=== PATIENT | female | born 1960 | race Caucasian/White ===

== ENCOUNTER 2019-12-23 12:05 | Emergency (ER) | payer OTHER ==
[~2019-12-23] VITALS: Ht 149.9 cm; Wt 80.0 kg
[~2019-12-23 12:05] MED LIST: HYDR-3245 PO
--- NOTE | 2019-12-23 12:28 | NUR ---
PT C/O LAKHANI STARTING THIS MORNING WITH NAUSEA, HX OF SAME ABOUT A YEAR AGO. FAMILY AT BEDSIDE TRANSLATING. PT CONNECTED TO MONITORING. CALL LIGHT IN REACH. AWAITING ORDERS. PT PROVIDED URINE SAMPLE.
[2019-12-23] MEDS ORDERED: DIPHENHYDRAMINE 50 MG/ML, 1ML ONE (12:48)
[2019-12-23] MEDS ORDERED: METOCLOPRAMIDE 5 MG/ML, 2ML ONE (12:48)
--- NOTE | 2019-12-23 12:55 | NUR ---
PIV PLACED. LABS DRAWN AND SENT TO LAB. MEDS ADMIN PER DEC.
[2019-12-23 13:00] LABS: BASOPHILS # (AUTO) 0.02 x10^3/uL (0-0.1); BASOPHILS % (AUTO) 0 % (0-1); EOSINOPHILS # (AUTO) 0.17 x10^3/uL (0-0.4); EOSINOPHILS % (AUTO) 3 % (1-7); LYMPHOCYTES # (AUTO) 1.79 x10^3/uL (1-3.4); LYMPHOCYTES % (AUTO) 33 % (22-44); MD NO; MEAN CORPUSCULAR HEMOGLOBIN 29.7 pg (27.0-34.8); MEAN CORPUSCULAR HGB CONC 33.5 g/dL (32.4-35.8); MEAN CORPUSCULAR VOLUME 88.5 fL (80-100); MEAN PLATELET VOLUME 7.9 fL (7.4-10.4); MONOCYTES # (AUTO) 0.28 x10^3/uL (0.2-0.8); MONOCYTES % (AUTO) 5 % (2-9); NEUTROPHILS # (AUTO) 3.21 x10^3/uL (1.8-6.8); NEUTROPHILS % (AUTO) 59 % (42-75); PLATELET COUNT 258 x10^3/uL (130-400); RED BLOOD COUNT 5.15 x10^6/uL (3.82-5.3); RED CELL DISTRIBUTION WIDTH 13.9 % (9.6-15.2)
[2019-12-23] MEDS ORDERED: DIPHENHYDRAMINE 50 MG/ML, 1ML IVPush ONE (13:00)
[2019-12-23] MEDS ORDERED: METOCLOPRAMIDE 5 MG/ML, 2ML IM ONE (13:00)
[2019-12-23 13:31] LABS: ALBUMIN 3.8 g/dL (3.4-5.0); ANION GAP 6 mmol/L (5-15); CALCIUM 9.1 mg/dL (8.5-10.1); CHLORIDE 106 mmol/L (98-107); CREATININE 0.79 mg/dL (0.55-1.02)
--- NOTE | 2019-12-23 13:54 | NUR ---
PT AT CT
--- NOTE | 2019-12-23 14:11 | NUR ---
PT BACK FROM CT. PT RESTING COMFORTABLY ON GURNEY. PT STATES LAKHANI IS BETTER. KADEN.
--- NOTE | 2019-12-23 14:20 | NUR ---
ALL RESULTS ARE BACK AT THIS TIME. CHART UP FOR RECHECK.
--- NOTE | 2019-12-23 14:22 | NUR ---
RECEIVED NEW LAB ORDERS AT THIS TIME.
[2019-12-23] MEDS ORDERED: KETOROLAC 30 MG/1 ML IM ONE (15:00)
[2019-12-23] MEDS ORDERED: KETOROLAC 30 MG/1 ML ONE (15:13)
[2019-12-23 15:18] VITALS: BP 116/65
--- NOTE | 2019-12-23 15:18 | NUR ---
MEDS ADMIN PER DEC. PT RESTING COMFORTABLY ON [place]. KADEN.
[2019-12-23 15:25] LABS: HCT (SEDRATE) 45.6 % (34.6-47.8)
--- NOTE | 2019-12-23 15:25 | NUR ---
ALL RESULTS BACK AT THIS TIME. CHART UP FOR RECHECK.
== END 2019-12-23 15:51 | disposition home or self-care (01) ==
LOC: ED 14:28
DX: G44.201 Tension-type headache, unspecified, intractable (principal); R11.2 Nausea with vomiting, unspecified; I10 Essential (primary) hypertension
CPT/HCPCS: 36415; 70450; 80048; 82040; 85025; 85651; 96372; 96374; 99285; J1200; J1885; J2765